=== PATIENT | female | born 1975 ===

== ENCOUNTER 2018-01-28 10:50 | Outpatient (REF) | payer OTHER, SELFPAY ==
[2018-01-28 21:07] LABS: Bacteria Few HPF (Negative); C & S Indicated? No; Casts Negative LPF (Negative); Crystals Negative HPF (Negative); Epithelial Cells Moderate HPF (Negative); Mucus Negative (Negative); RBC Negative (0-2); WBC 0-2 HPF (0-5)
== END 2018-01-28 11:10 ==
LOC: NCHCN 10:50
PROVIDERS: Visit Provider Nurse Practitioner Family
DX: R31.9 Hematuria, unspecified (principal)
CPT/HCPCS: 81015

== ENCOUNTER 2018-08-24 11:34 | Outpatient (REF) | payer OTHER, SELFPAY ==
[2018-08-24 21:56] LABS: Hemoglobin A1C 5.8 % (4.5-6.2)
[2018-08-24 22:03] LABS: ALT 23 U/L (12-78); AST 15 U/L (15-37); Albumin 3.7 g/dL (3.4-5.0); Alkaline Phosphatase 70 U/L (46-116); Anion Gap 10.6 mmol/L (3-11); BUN 9 mg/dL (7-18); Bilirubin, Total 0.3 mg/dL (0.2-1.0); CO2 25.4 mmol/L (21.0-32.0); CREATININE 0.78 mg/dL (0.55-1.02); Calcium 8.9 mg/dL (8.5-10.1); Chloride 102 mmol/L (98-107); Cholesterol 132 mg/dL (50-200); Glucose 69 mg/dL (70-100); HDL Cholesterol 48 mg/dL (40-60); LDL CHOLESTEROL 68 mg/dL (<100); Potassium 4.3 mmol/L (3.5-5.1); Sodium 138 mmol/L (136-145); Total Protein 7.6 g/dL (6.4-8.2); Triglyceride 56 mg/dL (30-150)
== END 2018-08-24 11:54 ==
LOC: NCHCN 11:34
PROVIDERS: Visit Provider Family Medicine
DX: Z00.00 Encounter for general adult medical examination without abnormal findings (principal); E66.3 Overweight; Z13.220 Encounter for screening for lipoid disorders; Z13.228 Encounter for screening for other metabolic disorders
CPT/HCPCS: 80053; 80061; 83721; 83036